=== PATIENT | male | born 1950 | race Caucasian/White ===

== ENCOUNTER 2020-04-15 04:46 | Emergency (ER) | payer MEDICARE, BC ==
[2020-04-15] MEDS ORDERED: Aspirin 81 MG Tab.Chew PO ONE (05:08)
[2020-04-15] MEDS ORDERED: Sodium Chloride 0.9% 10 ML Syringe FLUSH PRN (05:08)
--- NOTE | 2020-04-15 05:13 | EDM.PDOC ---
ED HPI GENERAL MEDICAL PROBLEM - General Chief Complaint: Chest Pain Stated Complaint: CHEST PAIN Time Seen by Provider: 04/15/20 05:04 Source of Information: Reports: Patient History Limitations: Reports: No Limitations - History of Present Illness INITIAL COMMENTS - FREE TEXT/NARRATIVE: The patient presents with chest pain. He said he woke up at 3am with the pain. It was sharp and now it is a dull ache. The pain radiates to his back and left arm. He has some numbness of a few fingers. He has no shortness of breath with it. He has no fever, chills, cough, congestion, runny nose, abdominal pain, nausea or vomiting. He has no history of heart disease or ID. He has no history of hypertension but he does have a history of hypercholesterolemia. He has no history of diabetes. He does not smoke. Onset: Sudden Duration: Hour(s): Location: Reports: Chest Quality: Reports: Ache Severity: Mild Improves with: Reports: None Worsens with: Reports: None Associated Symptoms: Reports: Chest Pain. Denies: Confusion, Cough, Fever/Chills, Headaches, Nausea/Vomiting, Shortness of Breath - Related Data Allergies Allergy/AdvReac Type Severity Reaction Status Date / Time No Known Allergies Allergy Verified 04/15/20 04:56 Home Meds: Home Meds atorvaSTATin [Lipitor] 20 mg PO DAILY 11/21/17 [History] Omeprazole 40 mg PO DAILY 04/15/20 [History] Tamsulosin HCl [Flomax] 0.4 mg PO DAILY 04/15/20 [History] Past Medical History Cardiovascular History: Reports: High Cholesterol Gastrointestinal History: Reports: GERD Genitourinary History: Reports: Prostate Disorder Musculoskeletal History: Reports: Arthritis Neurological History: Reports: Concussion, Head Trauma Dermatologic History: Reports: Psoriasis - Past Surgical History GI Surgical History: Reports: Colonoscopy, EGD Musculoskeletal Surgical History: Reports: Arthroscopic Knee, Joint Replacement, Knee Replacement Other Musculoskeletal Surgeries/Procedures:: L knee Social & Family History - Tobacco Use Tobacco Use Status *Q: Never Tobacco User - Caffeine Use Caffeine Use: Reports: Coffee - Living Situation & Occupation Living situation: Reports: Single Occupation: Employed (Self-employed rancher.) ED ROS GENERAL - Review of Systems Review Of Systems: See Below Constitutional: Reports: No Symptoms HEENT: Reports: No Symptoms Respiratory: Reports: No Symptoms Cardiovascular: Reports: Chest Pain Endocrine: Reports: No Symptoms GI/Abdominal: Reports: No Symptoms : Reports: No Symptoms Musculoskeletal: Reports: No Symptoms ED EXAM, GENERAL - Physical Exam Exam: See Below Exam Limited By: No Limitations General Appearance: Alert, No Apparent Distress Ears: Normal External Exam Nose: Normal Inspection Head: Atraumatic, Normocephalic Neck: Normal Inspection Respiratory/Chest: No Respiratory Distress, Lungs Clear, Normal Breath Sounds Cardiovascular: Regular Rate, Rhythm, No Edema, No Murmur GI/Abdominal: Soft, Non-Tender, No Organomegaly, No Mass Back Exam: Normal Inspection Extremities: Normal Inspection Neurological: Alert, Oriented, No Motor/Sensory Deficits #1 Interpretation EKG Date: 04/15/20 Time: 04:57 Rhythm: NSR Rate (Beats/Min): 58 [place]: Normal P-Wave: Present QRS: Normal ST-T: Normal QT: Normal KS/PQ Interval: 1st degree HB EKG Interpretation Comments: Q waves in the inferior leads Course - Vital Signs Last Recorded V/S: Last Vital Signs Temp 98.2 F 04/15/20 04:58 Pulse 55 L 04/15/20 04:58 Resp 16 04/15/20 04:58 BP 174/94 H 04/15/20 04:58 Pulse Ox 100 04/15/20 04:58 - Orders/Labs/Meds Orders: Active Orders 24 hr Category Date Time Status Cardiac Monitoring [RC] . DIRECTED Care 04/15/20 05:08 Active EKG Documentation Completion [RC] STAT Care 04/15/20 05:08 Active Peripheral IV Care [RC] . DIRECTED Care 04/15/20 05:08 Active Sodium Chloride 0.9% [Saline Flush] Med 04/15/20 05:08 Active 10 ml FLUSH ASDIRECTED PRN Peripheral IV Insertion Adult [OM.PC] Stat Oth 04/15/20 05:08 Ordered Medication Orders Sodium Chloride (Saline Flush) 10 ml FLUSH ASDIRECTED PRN PRN Reason: Keep Vein Open Last Admin: 04/15/20 05:13 Dose: 10 ml Documented by: IRENE Labs: Laboratory Tests 04/15/20 04/15/20 04/15/20 Range/Units 05:32 05:32 05:32 WBC 4.35 (4.23-9.07) K/mm3 RBC 4.52 L (4.63-6.08) M/mm3 Hgb 13.1 L (13.7-17.5) gm/dl Hct 40.6 (40.1-51.0) % MCV 89.8 (79.0-92.2) fl MCH 29.0 (25.7-32.2) pg MCHC 32.3 (32.2-35.5) g/dl RDW Std Deviation 47.1 H (35.1-43.9) fL Plt Count 104 L D (163-337) K/mm3 MPV 10.5 (9.4-12.3) fl Neut % (Auto) 64.4 (34.0-67.9) % Lymph % (Auto) 17.0 L (21.8-53.1) % [place] % (Auto) 14.5 H (5.3-12.2) % Eos % (Auto) 3.9 (0.8-7.0) Baso % (Auto) 0.2 (0.1-1.2) % Neut # (Auto) 2.80 (1.78-5.38) K/mm3 Lymph # (Auto) 0.74 L (1.32-3.57) K/mm3 [place] # (Auto) 0.63 (0.30-0.82) K/mm3 Eos # (Auto) 0.17 (0.04-0.54) K/mm3 Baso # (Auto) 0.01 (0.01-0.08) K/mm3 D-Dimer, Quantitative 1.33 H (0.19-0.50) mg/L Sodium 146 H (136-145) mEq/L Potassium 4.1 (3.5-5.1) mEq/L Chloride 110 H (98-107) mEq/L Carbon Dioxide 24 (21-32) mEq/L Anion Gap 16.1 H (5-15) BUN 18 (7-18) mg/dL Creatinine 1.2 (0.7-1.3) mg/dL Est Cr Clr Drug Dosing 56.21 mL/min Estimated GFR (MDRD) > 60 (>60) mL/min BUN/Creatinine Ratio 15.0 (14-18) Glucose 97 (80-115) mg/dL Calcium 8.6 (8.5-10.1) mg/dL Total Bilirubin 0.7 (0.2-1.0) mg/dL AST 26 (15-37) U/L ALT 26 (16-63) U/L Alkaline Phosphatase 104 (46-116) U/L Troponin I < 0.017 (0.00-0.056) ng/mL Total Protein 7.1 (6.4-8.2) g/dl Albumin 3.4 (3.4-5.0) g/dl Globulin 3.7 gm/dL Albumin/Globulin Ratio 0.9 L (1-2) Meds: Medications Generic Name Dose Route Start Last Admin Trade Name Freq PRN Reason Stop Dose Admin Sodium Chloride 10 ml 04/15/20 05:08 04/15/20 05:13 Saline Flush FLUSH 10 ml ASDIRECTED PRN Administration Keep Vein Open Discontinued Medications Generic Name Dose Route Start Last Admin Trade Name Freq PRN Reason Stop Dose Admin Aspirin 324 mg 04/15/20 05:08 04/15/20 05:13 Aspirin PO 04/15/20 05:09 324 mg ONETIME ONE Administration Sodium Chloride 100 mls @ 4 mls/sec 04/15/20 06:45 04/15/20 06:46 Normal Saline IV 04/15/20 06:46 4 mls/sec ONETIME ONE Administration Iopamidol 100 ml 04/15/20 06:45 04/15/20 06:46 Isovue-370 (76%) IVPUSH 04/15/20 06:46 100 ml ONETIME ONE Administration - Re-Assessments/Exams Free Text/Narrative Re-Assessment/Exam: 04/15/20 05:13 I ordered an IV saline lock, CXR, EKG, labs and aspirin. His EKG shows a NSR with no acute changes. 04/15/20 06:58 His CBC looks good. His sodium was a little elevated at 146. His anion gap was elevated at 16.1. His troponin is negative. His D-dimer was elevated at 1.33. I ordered a CT angio of his chest and that showed no PE and no infiltrates. He is feeling good. I will discharge him home. Departure - Departure Time of Disposition: 07:05 Disposition: Home, Self-Care 01 Condition: Good Clinical Impression: Atypical chest pain Referrals: Pete Bruce MD [Primary Care Provider] - 1 Week Forms: ED Department Discharge Additional Instructions: Take your medications as prescribed. Follow up with Dr Bruce in a week. Please return if you are worse. Sepsis Event Note (ED) - Evaluation Sepsis Screening Result: No Definite Risk - Focused Exam Vital Signs: Vital Signs Temp Pulse Resp BP Pulse Ox 04/15/20 04:58 98.2 F 55 L 16 174/94 H 100 - My Orders Last 24 Hours: My Active Orders 04/15/20 05:08 Cardiac Monitoring [RC] . DIRECTED EKG Documentation Completion [RC] STAT Peripheral IV Care [RC] . DIRECTED Sodium Chloride 0.9% [Saline Flush] 10 ml FLUSH ASDIRECTED PRN Peripheral IV Insertion Adult [OM.PC] Stat - Assessment/Plan Last 24 Hours: My Active Orders 04/15/20 05:08 Cardiac Monitoring [RC] . DIRECTED EKG Documentation Completion [RC] STAT Peripheral IV Care [RC] . DIRECTED Sodium Chloride 0.9% [Saline Flush] 10 ml FLUSH ASDIRECTED PRN Peripheral IV Insertion Adult [OM.PC] Stat
[2020-04-15] MEDS ORDERED: Iopamidol 755 Mg/ML 100 ML Bottle IVPUSH ONE (06:45)
[2020-04-15] MEDS ORDERED: Sodium Chloride 0.9% 100 ML IV ONE (06:45)
--- NOTE | 2020-04-15 06:56 | CT ---
CT chest Technique: Multiple axial sections through the chest were obtained. Intravenous contrast was utilized. Study has been performed as a pulmonary angiogram protocol. Findings: Pulmonary arteries are well opacified. No filling defects are appreciated to indicate pulmonary embolism. Thoracic aorta shows atherosclerotic change without aneurysm. Mediastinum shows small normal-sized lymph nodes. Heart is felt to be somewhat enlarged. Visualized upper abdominal structures show no discrete abnormality. Visualized lungs show no acute parenchymal change. No pleural effusions are seen. Bone window settings were reviewed which show scattered disc space narrowing and endplate spurring within the spine. No acute osseous abnormality is appreciated. Impression: 1. No findings of pulmonary embolism. 2. Nothing acute is identified on CT study of the chest. Diagnostic code #2
== END 2020-04-15 07:10 | disposition home or self-care (01) ==
LOC: JD.ED 04:46
DX: R07.89 Other chest pain (principal); E78.00 Pure hypercholesterolemia, unspecified; K21.9 Gastro-esophageal reflux disease without esophagitis; N42.9 Disorder of prostate, unspecified; Z79.899 Other long term (current) drug therapy
CPT/HCPCS: 36415; 71275; 80053; 84484; 85025; 85379; 93005; 99285; A9270; Q9967; 93010; 99284

== ENCOUNTER 2021-01-01 02:46 | Emergency (ER) | payer MEDICARE, BC ==
[2021-01-01] MEDS ORDERED: Acetaminophen 325 MG Tab PO ONE (03:26)
--- NOTE | 2021-01-01 03:29 | EDM.PDOC ---
ED HPI GENERAL MEDICAL PROBLEM - General Chief Complaint: Headache Stated Complaint: COVID SYMPTOMS Time Seen by Provider: 01/01/21 03:07 Source of Information: Reports: Patient, RN Notes Reviewed - History of Present Illness INITIAL COMMENTS - FREE TEXT/NARRATIVE: 70 yr old male started wtih cough, nasal and sinus congestion about 2 wks ago. has had increased nasal and sinus congestion the last few days, started wit Urias yesterday. No fever, chills, vomiting or diarrhea. Frontal Headache Pain Score (Numeric/FACES): 8 - Related Data Allergies Allergy/AdvReac Type Severity Reaction Status Date / Time No Known Allergies Allergy Verified 01/01/21 02:56 Home Meds: Home Meds atorvaSTATin [Lipitor] 20 mg PO DAILY 11/21/17 [History] Omeprazole 40 mg PO DAILY 04/15/20 [History] Tamsulosin HCl [Flomax] 0.4 mg PO DAILY 04/15/20 [History] cephALEXin [Cephalexin] 500 mg PO Q8HR #20 capsule 01/01/21 [Rx] Past Medical History HEENT History: Reports: Impaired Vision Other HEENT History: Wears glasses Cardiovascular History: Reports: High Cholesterol Gastrointestinal History: Reports: GERD Genitourinary History: Reports: Prostate Disorder Musculoskeletal History: Reports: Arthritis Neurological History: Reports: Concussion, Head Trauma Dermatologic History: Reports: Psoriasis - Past Surgical History GI Surgical History: Reports: Colonoscopy, EGD Musculoskeletal Surgical History: Reports: Arthroscopic Knee, Joint Replacement, Knee Replacement Other Musculoskeletal Surgeries/Procedures:: L knee Social & Family History - Tobacco Use Tobacco Use Status *Q: Never Tobacco User - Caffeine Use Caffeine Use: Reports: Coffee - Recreational Drug Use Recreational Drug Use: No - Living Situation & Occupation Living situation: Reports: Single Occupation: Employed (Self-employed rancher.) ED ROS GENERAL - Review of Systems Review Of Systems: See Below Constitutional: Denies: Fever, Chills HEENT: Reports: Rhinitis, Sinus Problem. Denies: Throat Pain Respiratory: Reports: Shortness of Breath, Cough Cardiovascular: Denies: Chest Pain GI/Abdominal: Denies: Diarrhea, Nausea, Vomiting Musculoskeletal: Reports: No Symptoms Skin: Reports: No Symptoms Neurological: Reports: Headache ED EXAM, GENERAL - Physical Exam Exam: See Below General Appearance: Alert, No Apparent Distress Head: Atraumatic Neck: Supple Respiratory/Chest: No Respiratory Distress, Lungs Clear, Normal Breath Sounds. No: Rales, Rhonchi, Wheezing Cardiovascular: Regular Rate, Rhythm GI/Abdominal: Soft, Non-Tender Back Exam: No: CVA Tenderness (L), CVA Tenderness (R) Extremities: No: Pedal Edema, Leg Pain Neurological: Alert, Oriented, No Motor/Sensory Deficits Skin Exam: Warm, Dry, Normal Color Course - Vital Signs Last Recorded V/S: Last Vital Signs Temp 97.9 F 01/01/21 02:57 Pulse 70 01/01/21 02:57 Resp 16 01/01/21 02:57 BP 170/99 H 01/01/21 02:57 Pulse Ox 93 L 01/01/21 02:57 - Orders/Labs/Meds Orders: Active Orders 24 hr Category Date Time Status Chest 1V Frontal [CR] Stat Exams 01/01/21 03:13 Taken Labs: Laboratory Tests 01/01/21 01/01/21 01/01/21 Range/Units 02:55 03:26 03:26 WBC 6.96 (4.23-9.07) K/mm3 RBC 4.36 L (4.63-6.08) M/mm3 Hgb 12.7 L (13.7-17.5) gm/dl Hct 38.9 L (40.1-51.0) % MCV 89.2 (79.0-92.2) fl MCH 29.1 (25.7-32.2) pg MCHC 32.6 (32.2-35.5) g/dl RDW Std Deviation 45.4 H (35.1-43.9) fL Plt Count 175 (163-337) K/mm3 MPV 9.7 (9.4-12.3) fl Neut % (Auto) 72.6 H (34.0-67.9) % Lymph % (Auto) 13.2 L (21.8-53.1) % [place] % (Auto) 12.2 (5.3-12.2) % Eos % (Auto) 1.6 (0.8-7.0) Baso % (Auto) 0.3 (0.1-1.2) % Neut # (Auto) 5.05 (1.78-5.38) K/mm3 Lymph # (Auto) 0.92 L (1.32-3.57) K/mm3 [place] # (Auto) 0.85 H (0.30-0.82) K/mm3 Eos # (Auto) 0.11 (0.04-0.54) K/mm3 Baso # (Auto) 0.02 (0.01-0.08) K/mm3 C-Reactive Protein 0.2 (<1.0) mg/dL SARS-CoV-2 RNA (KARINA) Negative (NEGATIVE) Meds: Medications Discontinued Medications Generic Name Dose Route Start Last Admin Trade Name Yandy PRN Reason Stop Dose Admin Acetaminophen 975 mg 01/01/21 03:26 01/01/21 03:36 Acetaminophen 325 Mg Tab PO 01/01/21 03:27 975 mg NOW ONE Administration Cephalexin 500 mg 01/01/21 04:06 Cephalexin 500 Mg Cap PO 01/01/21 04:07 ONETIME ONE - Re-Assessments/Exams Free Text/Narrative Re-Assessment/Exam: 01/01/21 04:16 CXR clear, covid neg, WBC, CRP nl. Discharge instr. as documented. Departure - Departure Time of Disposition: 04:08 Disposition: Home, Self-Care 01 Condition: Fair Clinical Impression: Sinusitis Headache Qualifiers: Headache type: unspecified Headache chronicity pattern: acute headache Intractability: not intractable Qualified Code(s): R51.9 - Headache, unspecified - Discharge Information Prescriptions: cephALEXin [Cephalexin] 500 mg PO Q8HR #20 capsule Instructions: Sinusitis, Adult, [id number], Sinus Headache, [id number] Referrals: Pete Bruce MD [Primary Care Provider] - Forms: ED Department Discharge Additional Instructions: Cephalexin 500 mg 3 times daily for 1 week or until gone. Claritin antihistamine 10 mg daily for 7 to 10 days. Pseudafed decongestant available OTC, 30 mg 2 to 3 times daily as needed for severe nasal and sinus congestion until symptoms of nasal and sinus congestion improving. Tylenol alternating with ibuprofen or aleve as needed for headache. Follow up clinic if not much better within 3 to 5 days as expected. Sepsis Event Note (ED) - Evaluation Sepsis Screening Result: No Definite Risk - Focused Exam Vital Signs: Vital Signs Temp Pulse Resp BP Pulse Ox 01/01/21 02:57 97.9 F 70 16 170/99 H 93 L - My Orders Last 24 Hours: My Active Orders 01/01/21 03:13 Chest 1V Frontal [CR] Stat - Assessment/Plan Last 24 Hours: My Active Orders 01/01/21 03:13 Chest 1V Frontal [CR] Stat
[2021-01-01] MEDS ORDERED: Cephalexin 500 MG Cap PO ONE (04:06)
--- NOTE | 2021-01-01 06:45 | CR ---
Chest: Portable view of the chest was obtained. Comparison: Prior CT chest study and chest x-ray dated 04/15/20. Heart is slightly enlarged with a left ventricular configuration. Upper mediastinum is within normal limits. No definite acute parenchymal change is seen. Mild degenerative change is noted within both shoulders. Mild degenerative change is seen within the spine. Slight scoliosis is noted. Impression: 1. Findings as noted above. 2. Nothing acute is appreciated. Diagnostic code #2
== END 2021-01-01 04:21 | disposition home or self-care (01) ==
LOC: JD.ED 02:46
DX: J32.9 Chronic sinusitis, unspecified (principal); E78.00 Pure hypercholesterolemia, unspecified; K21.9 Gastro-esophageal reflux disease without esophagitis; Z79.899 Other long term (current) drug therapy; Z20.822 Contact with and (suspected) exposure to COVID-19
CPT/HCPCS: 36415; 71045; 85025; 86140; 87804; 99284; A9270; U0002

== ENCOUNTER 2024-06-24 13:52 | Inpatient (IN) | payer MEDICARE, BC ==
[2024-06-24] MEDS ORDERED: Sodium Chloride 0.9% 10 ML Syringe FLUSH PRN (14:35)
[2024-06-24 15:04] LABS: BASOPHILS PERCENT AUTO 0.8 % (0.0-1.0); EOSINOPHILS ABSOLUTE AUTO 0.3 K/mm3 (0.0-0.4); EOSINOPHILS PERCENT AUTO 6.2 % (0.0-6.0); HEMATOCRIT 34.9 % (42.0-52.0); HEMOGLOBIN 10.8 gm/dl (14.0-18.0); IMMATURE GRAN ABSOLUTE AUTO 0.02 K/mm3 (0.00-0.05); IMMATURE GRAN PERCENT AUTO 0.4 % (0.0-0.4); LYMPHOCYTES ABSOLUTE AUTO 0.9 K/mm3 (1.0-4.8); LYMPHOCYTES PERCENT AUTO 18.5 % (24.0-44.0); MEAN CORPUSCULAR HEMOGLOBIN 26.8 pg (28.0-32.0); MEAN CORPUSCULAR HGB CONC 30.9 g/dl (32.0-36.0); MEAN CORPUSCULAR VOLUME 86.6 fl (83.0-99.0); MEAN PLATELET VOLUME 9.7 fl (9.4-12.4); MONOCYTES ABSOLUTE AUTO 0.7 K/mm3 (0.0-0.8); MONOCYTES PERCENT AUTO 14.3 % (0.0-8.0); NEUTROPHILS ABSOLUTE AUTO 2.9 K/mm3 (1.8-7.7); NEUTROPHILS PERCENT AUTO 59.8 % (41.0-71.0); PLATELET COUNT,PLT 194 K/mm3 (150-400); RED BLOOD CELL COUNT 4.03 M/mm3 (4.52-5.90); WHITE BLOOD CELL COUNT,WBC 4.82 K/mm3 (3.9-11.3)
[2024-06-24 15:39] LABS: A/G RATIO 0.7 (1-2); ANION GAP 12.3 (5-15); BILIRUBIN TOTAL 0.6 mg/dL (0.2-1.0); BUN/CREATININE RATIO 15.3 (14-18); C-REACTIVE PROTEIN 0.36 mg/dL (<0.30); CALCIUM 8.8 mg/dL (8.5-10.1); CREATININE 1.5 mg/dL (0.7-1.3); EST CRCL DRUG DOSING (CG) 38.15 mL/min; MAGNESIUM 2.1 mg/dL (1.8-2.4); POTASSIUM,K 4.3 mEq/L (3.5-5.1); PROTEIN TOTAL,TP 7.4 g/dl (6.4-8.2)
[2024-06-24] MEDS: Furosemide 40 MG/4 ML VIAL IVPUSH ONE (16:23)
[2024-06-24] MEDS ORDERED: Polyethylene Glycol 3350 Powder 17 GM Packet PO PRN (17:03)
[2024-06-24] MEDS ORDERED: Acetaminophen 325 MG Tab PO PRN (17:03)
[2024-06-24] MEDS: Metoprolol Tartrate 25 MG Tab PO SCH (20:30)
[2024-06-25] MEDS: Melatonin 3 MG Tab PO PRN (01:30)
[2024-06-25 04:43] LABS: BASOPHILS PERCENT AUTO 0.7 % (0.0-1.0); EOSINOPHILS ABSOLUTE AUTO 0.4 K/mm3 (0.0-0.4); EOSINOPHILS PERCENT AUTO 7.5 % (0.0-6.0); HEMATOCRIT 32.4 % (42.0-52.0); HEMOGLOBIN 10.1 gm/dl (14.0-18.0); IMMATURE GRAN ABSOLUTE AUTO 0.01 K/mm3 (0.00-0.05); IMMATURE GRAN PERCENT AUTO 0.2 % (0.0-0.4); LYMPHOCYTES ABSOLUTE AUTO 1.2 K/mm3 (1.0-4.8); LYMPHOCYTES PERCENT AUTO 21.2 % (24.0-44.0); MEAN CORPUSCULAR HEMOGLOBIN 26.4 pg (28.0-32.0); MEAN CORPUSCULAR HGB CONC 31.2 g/dl (32.0-36.0); MEAN CORPUSCULAR VOLUME 84.6 fl (83.0-99.0); MEAN PLATELET VOLUME 9.9 fl (9.4-12.4); MONOCYTES ABSOLUTE AUTO 0.8 K/mm3 (0.0-0.8); MONOCYTES PERCENT AUTO 14.5 % (0.0-8.0); NEUTROPHILS ABSOLUTE AUTO 3.1 K/mm3 (1.8-7.7); NEUTROPHILS PERCENT AUTO 55.9 % (41.0-71.0); PLATELET COUNT,PLT 193 K/mm3 (150-400); RED BLOOD CELL COUNT 3.83 M/mm3 (4.52-5.90); WHITE BLOOD CELL COUNT,WBC 5.46 K/mm3 (3.9-11.3)
[2024-06-25 05:04] LABS: A/G RATIO 0.7 (1-2); ALBUMIN 2.8 g/dl (3.4-5.0); ANION GAP 10.3 (5-15); BILIRUBIN TOTAL 0.7 mg/dL (0.2-1.0); CALCIUM 8.8 mg/dL (8.5-10.1); CREATININE 1.5 mg/dL (0.7-1.3); EST CRCL DRUG DOSING (CG) 38.15 mL/min; POTASSIUM,K 4.3 mEq/L (3.5-5.1)
[2024-06-25] MEDS: Furosemide 40 MG/4 ML VIAL IVPUSH ONE (08:54)
[2024-06-25] MEDS: Aspirin 81 MG Tab.Chew PO SCH (08:56)
[2024-06-25] MEDS: Clopidogrel 75 MG Tab PO SCH (08:56)
[2024-06-25] MEDS: atorvaSTATin 20 MG Tab PO SCH (08:56)
[2024-06-25] MEDS: Tamsulosin 0.4 MG Cap.ER PO SCH (08:56)
== END 2024-06-25 13:30 | disposition home or self-care (01) | DRG 292 ==
LOC: JD.ED 13:52 → JD.MS 17:03
PROVIDERS: ADMIT Family Medicine; ATTEND Family Medicine
DX: I50.9 Heart failure, unspecified (principal); I50.33 Acute on chronic diastolic (congestive) heart failure; N17.9 Acute kidney failure, unspecified; Z66 Do not resuscitate; N18.9 Chronic kidney disease, unspecified; E78.00 Pure hypercholesterolemia, unspecified; K21.9 Gastro-esophageal reflux disease without esophagitis; I25.10 Atherosclerotic heart disease of native coronary artery without angina pectoris; Z96.659 Presence of unspecified artificial knee joint; M19.90 Unspecified osteoarthritis, unspecified site; H54.7 Unspecified visual loss; Z98.890 Other specified postprocedural states; Z79.899 Other long term (current) drug therapy; Z95.1 Presence of aortocoronary bypass graft; Z95.2 Presence of prosthetic heart valve
CPT/HCPCS: 36415; 71045; 71045-26; 80053; 83735; 83880; 84484; 85025; 86140; 93005; 93010; 93306; 96374; 97112-GP; 97116-GP; 97161-GP; 99285; 99285-25; A9270-GY; J1940